=== PATIENT | male | born 1950 | race Two or more races ===

== ENCOUNTER 2020-05-23 12:59 | Emergency (ER) | payer OTHER ==
[~2020-05-23] VITALS: Ht 165.1 cm; Wt 72.7 kg
--- NOTE | 2020-05-23 14:25 | NUR ---
PT TO ROOM AT THIS TIME.
--- NOTE | 2020-05-23 14:50 | NUR ---
REPORT RECEIVED FROM SANAZ HERNANDEZ. PT IS RESTING ON CHAIR IN ROOM W/ CALL LIGHT IN REACH. RESP EVEN AND UNLABOREDNADN. AWAITING TEST RESULTS. Addendum: 05/23/20 at 1451 by LJAGA REPORT RECEIVED FROM SANAZ HERNANDEZ. PT IS RESTING ON CHAIR IN ROOM W/ CALL LIGHT IN REACH. RESP EVEN AND UNLABNADN. TEJAL AWAITING ED
--- NOTE | 2020-05-23 15:03 | NUR ---
AT BEDSIDE FOR ED EVAL.
--- NOTE | 2020-05-23 15:40 | NUR ---
PT TO CT.
[2020-05-23 17:04] VITALS: BP 148/87
== END 2020-05-23 17:53 | disposition home or self-care (01) ==
LOC: ED 17:38
DX: S09.90XA Unspecified injury of head, initial encounter (principal); W01.198A Fall on same level from slipping, tripping and stumbling with subsequent striking against other object, initial encounter; Y93.89 Activity, other specified; Y92.89 Other specified places as the place of occurrence of the external cause; Y99.0 Civilian activity done for income or pay
CPT/HCPCS: 70450; 99284